=== PATIENT | male | born 1960 | race Caucasian/White ===

== ENCOUNTER 2021-12-25 01:46 | Inpatient (IN) ==
[2021-12-25] MEDS ORDERED: fentaNYL 100 mcg/2 ml 50 MCG/ML VIAL IV ONE (01:48)
[2021-12-25] MEDS ORDERED: Droperidol 5 MG/2 ML 2 ML VIAL IV ONE (01:48)
[2021-12-25] MEDS ORDERED: Lactated Ringers 1000 ml BAG 1,000 ML IV ONE (01:48)
[2021-12-25] MEDS ORDERED: HYDROmorphone 0.5 MG/0.5 ML SYRINGE IV SLOW PU PRN (02:44)
[2021-12-25] MEDS ORDERED: Ondansetron 4 mg VIAL 2 MG/ML 2 ml VIAL IV PRN (02:44)
[2021-12-25] MEDS ORDERED: Piperacillin/Tazobac ADVAN 3.375 GM in NS 0.9% 100 ml BAG 100 ML IV ONE (02:50)
[2021-12-25] MEDS ORDERED: Ciprofloxacin 400mg IVPREMIX 400 MG/200 ML BAG IVPB SCH (03:00)
[2021-12-25] MEDS ORDERED: metroNIDAZOLE IV 500 MG/100ML 100 ML IVPB SCH (03:00)
[2021-12-25] MEDS ORDERED: Zosyn per Pharmacy NOTE FOLLOW UP SCH (03:00)
[2021-12-25] MEDS: Lactated Ringers 1000 ml BAG 1,000 ML IV SCH (03:28)
[2021-12-25] MEDS: metroNIDAZOLE IV 500 MG/100ML 500 MG/100 ML BAG IVPB SCH ×3 (05:53→19:25)
[2021-12-25] MEDS ORDERED: Acetaminophen IV 1 GM/100ML 100 ML IV ONE ×2 (07:58→08:07)
[2021-12-25 08:27] LABS: Hematocrit 42 % (42-52); Hemoglobin 14.2 g/dL (14.0-18.0); Mean Corpuscular HGB Conc 34 g/dL (31-36); Mean Corpuscular Hemoglobin 31 pg (27-31); Mean Corpuscular Volume 91 fL (80-94); Red Blood Count 4.65 10^6 /uL (4.18-5.48); Red Cell Distribution Width 14 % (10-15)
[2021-12-25 09:04] LABS: Anion Gap 10 mmol/L (2-11); Blood Urea Nitrogen 22 mg/dL (6-24); C Reactive Protein 237.45 mg/L (<8.01); CO2 Carbon Dioxide 22 mmol/L (22-32); Calcium 8.8 mg/dL (8.6-10.3); Chloride 100 mmol/L (101-111); Glucose 125 mg/dL (70-100); Potassium 4.1 mmol/L (3.5-5.0); Sodium 132 mmol/L (135-145); eGFR CKD-EPI 84.7 (>60)
[2021-12-25 09:10] LABS: CRP High Sensitivity > 80.00 mg/L (<2.00)
[2021-12-25 09:37] LABS: Platelet Count Platelets clumped. 10^3/uL (150-450); White Blood Count 1.6 10^3/uL (3.5-10.8)
[2021-12-25 09:38] LABS: ABS Lymphocytes 0.3 10^3/ul (1.0-4.8); ABS Monocytes 0.2 10^3/ul (0-0.8); ABS Neutrophils 1.2 10^3/ul (1.5-7.7); Eosinophil % 0.2 %; Lymphocyte % 16.3 %; Nucleated Red Blood Cells % 0.2
[2021-12-25] MEDS ORDERED: SODIUM CHLORIDE 0.9% IV ONE (10:15)
[2021-12-25] MEDS: Ciprofloxacin 400mg IVPREMIX 400 MG/200 ML BAG IVPB SCH (15:06)
[2021-12-26] MEDS: Lactated Ringers 1000 ml BAG 1,000 ML IV SCH ×2 (00:08→11:59)
[2021-12-26] MEDS: Ciprofloxacin 400mg IVPREMIX 400 MG/200 ML BAG IVPB SCH ×2 (03:15→16:21)
[2021-12-26] MEDS: metroNIDAZOLE IV 500 MG/100ML 500 MG/100 ML BAG IVPB SCH ×3 (04:39→18:46)
[2021-12-26 07:04] LABS: ABS Lymphocytes 0.4 10^3/ul (1.0-4.8); ABS Monocytes 0.3 10^3/ul (0-0.8); Hematocrit 38 % (42-52); Hemoglobin 12.8 g/dL (14.0-18.0); Mean Corpuscular HGB Conc 34 g/dL (31-36); Mean Corpuscular Hemoglobin 31 pg (27-31); Mean Corpuscular Volume 92 fL (80-94); Mean Platelet Volume 8.3 fL (7.4-10.4); Platelet Count 153 10^3/uL (150-450); Red Blood Count 4.14 10^6 /uL (4.18-5.48); Red Cell Distribution Width 14 % (10-15); White Blood Count 7.7 10^3/uL (3.5-10.8)
[2021-12-26 07:18] LABS: Calcium 8.7 mg/dL (8.6-10.3); Potassium 4.2 mmol/L (3.5-5.0); eGFR CKD-EPI 80.8 (>60)
[2021-12-26] MEDS: Enoxaparin 40 MG/0.4 ML SYR SUBCUT SCH (09:38)
[2021-12-26] MEDS ORDERED: Lactated Ringers 1000 ml BAG 1,000 ML IV SCH (15:15)
[2021-12-27] MEDS: Ciprofloxacin 400mg IVPREMIX 400 MG/200 ML BAG IVPB SCH ×2 (02:06→15:15)
[2021-12-27] MEDS: metroNIDAZOLE IV 500 MG/100ML 500 MG/100 ML BAG IVPB SCH ×3 (03:49→20:18)
[2021-12-27 06:24] LABS: Hematocrit 39 % (42-52); Hemoglobin 13.1 g/dL (14.0-18.0); Mean Corpuscular HGB Conc 34 g/dL (31-36); Mean Corpuscular Hemoglobin 31 pg (27-31); Mean Corpuscular Volume 91 fL (80-94); Red Blood Count 4.25 10^6 /uL (4.18-5.48); Red Cell Distribution Width 13 % (10-15); White Blood Count 8.7 10^3/uL (3.5-10.8)
[2021-12-27 06:25] LABS: ABS Lymphocytes 0.4 10^3/ul (1.0-4.8); ABS Monocytes 0.5 10^3/ul (0-0.8); ABS Neutrophils 7.7 10^3/ul (1.5-7.7); Lymphocyte % 4.7 %; Nucleated Red Blood Cells % 0.1
[2021-12-27 06:35] LABS: Potassium 3.9 mmol/L (3.5-5.0); eGFR CKD-EPI 99.4 (>60)
[2021-12-27 08:16] LABS: Mean Platelet Volume 8.7 fL (7.4-10.4)
[2021-12-27 08:26] LABS: Platelet Count Platelets clumped. 10^3/uL (150-450)
[2021-12-27] MEDS: Enoxaparin 40 MG/0.4 ML SYR SUBCUT SCH (08:45)
[2021-12-28] MEDS: Ciprofloxacin 400mg IVPREMIX 400 MG/200 ML BAG IVPB SCH (03:03)
[2021-12-28] MEDS: metroNIDAZOLE IV 500 MG/100ML 500 MG/100 ML BAG IVPB SCH (04:38)
[2021-12-28 06:55] LABS: ABS Eosinophils 0.1 10^3/ul (0-0.6); ABS Lymphocytes 0.8 10^3/ul (1.0-4.8); ABS Monocytes 0.9 10^3/ul (0-0.8); ABS Neutrophils 8.7 10^3/ul (1.5-7.7); Eosinophil % 0.7 %; Hematocrit 38 % (42-52); Hemoglobin 12.8 g/dL (14.0-18.0); Lymphocyte % 7.5 %; Mean Corpuscular HGB Conc 34 g/dL (31-36); Mean Corpuscular Hemoglobin 31 pg (27-31); Mean Corpuscular Volume 91 fL (80-94); Red Blood Count 4.11 10^6 /uL (4.18-5.48); Red Cell Distribution Width 14 % (10-15); White Blood Count 10.5 10^3/uL (3.5-10.8)
[2021-12-28 07:09] LABS: Calcium 8.4 mg/dL (8.6-10.3); Potassium 3.7 mmol/L (3.5-5.0); eGFR CKD-EPI 103.1 (>60)
[2021-12-28 07:16] LABS: Platelet Count Platelets clumped. 10^3/uL (150-450)
[2021-12-28] MEDS: Enoxaparin 40 MG/0.4 ML SYR SUBCUT SCH (09:32)
[2021-12-28] MEDS ORDERED: metroNIDAZOLE IV 500 MG/100ML 500 MG/100 ML BAG IVPB SCH (12:00)
[2021-12-28 12:12] VITALS: BP 151/90
== END 2021-12-28 13:25 | disposition home or self-care (01) | DRG 244 ==
LOC: ED 01:46 → EDHOLD 02:57 → SSU 09:54
PROVIDERS: ADMIT Surgery; ATTEND Surgery

== ENCOUNTER 2022-01-15 13:31 | Inpatient (IN) ==
[2022-01-15 15:17] LABS: ABS Basophils 0.1 10^3/ul (0-0.2); ABS Eosinophils 0.1 10^3/ul (0-0.6); ABS Lymphocytes 1.2 10^3/ul (1.0-4.8); ABS Monocytes 0.9 10^3/ul (0-0.8); ABS Neutrophils 7.3 10^3/ul (1.5-7.7); Eosinophil % 1.4 %; Hematocrit 38 % (42-52); Hemoglobin 12.3 g/dL (14.0-18.0); Lymphocyte % 12.8 %; Mean Corpuscular HGB Conc 33 g/dL (31-36); Mean Corpuscular Hemoglobin 29 pg (27-31); Mean Corpuscular Volume 88 fL (80-94); Mean Platelet Volume 7.7 fL (7.4-10.4); Platelet Count 372 10^3/uL (150-450); Red Blood Count 4.24 10^6 /uL (4.18-5.48); Red Cell Distribution Width 13 % (10-15); White Blood Count 9.6 10^3/uL (3.5-10.8)
[2022-01-15 15:21] LABS: Urine Appearance Clear; Urine Bilirubin Negative (Negative); Urine Blood Negative (Negative); Urine Color Yellow; Urine Glucose Negative (Negative); Urine Ketones Negative (Negative); Urine Nitrite Negative (Negative); Urine Protein Negative (Negative); Urine Specific Gravity 1.012 (1.002-1.030); Urine Urobilinogen Negative (Negative)
[2022-01-15 15:52] LABS: Albumin 3.4 g/dL (3.2-5.2); Albumin/Globulin Ratio 0.9 (1-3); C Reactive Protein 156.82 mg/L (<8.01); Calcium 9.6 mg/dL (8.6-10.3); Globulin 3.9 g/dL (2-4); Potassium 4.4 mmol/L (3.5-5.0); Total Bilirubin 0.8 mg/dL (0.2-1.0); Total Protein 7.3 g/dL (6.4-8.9); eGFR CKD-EPI 105.7 (>60)
[2022-01-15] MEDS ORDERED: Morphine 4 MG/ML VIAL (1 ml) IV ONE (17:45)
[2022-01-15] MEDS ORDERED: Lactated Ringers 1000 ml BAG 1,000 ML IV ONE (17:45)
[2022-01-15] MEDS ORDERED: Piperacillin/Tazobac ADVAN 3.375 GM in NS 0.9% 100 ml BAG 100 ML IV ONE (19:40)
[2022-01-15] MEDS ORDERED: Ondansetron 4 mg VIAL 2 MG/ML 2 ml VIAL IV PRN (20:00)
[2022-01-15] MEDS ORDERED: Albuterol HFA INHALER 8 gm MDI INH PRN (20:04)
[2022-01-16] MEDS ORDERED: ZOSYN 3.375 GM Q8H per EXTENDED INFUSION IV ONE (01:00)
[2022-01-16] MEDS: NS 0.9% 1000 ml BAG 1,000 ML IV SCH ×2 (02:33→17:15)
[2022-01-16 05:45] LABS: ABS Eosinophils 0.2 10^3/ul (0-0.6); ABS Lymphocytes 1.2 10^3/ul (1.0-4.8); ABS Monocytes 0.8 10^3/ul (0-0.8); ABS Neutrophils 7.8 10^3/ul (1.5-7.7); Eosinophil % 1.6 %; Hematocrit 36 % (42-52); Hemoglobin 11.9 g/dL (14.0-18.0); Lymphocyte % 11.8 %; Mean Corpuscular HGB Conc 33 g/dL (31-36); Mean Corpuscular Hemoglobin 29 pg (27-31); Mean Corpuscular Volume 89 fL (80-94); Mean Platelet Volume 7.2 fL (7.4-10.4); Platelet Count 342 10^3/uL (150-450); Red Blood Count 4.08 10^6 /uL (4.18-5.48); Red Cell Distribution Width 13 % (10-15)
[2022-01-16 06:18] LABS: Calcium 9.2 mg/dL (8.6-10.3); Potassium 4.6 mmol/L (3.5-5.0); eGFR CKD-EPI 99.4 (>60)
[2022-01-16] MEDS: Piperacillin/Tazobactam VIAL 3.375 GM in NS 0.9% 100 ml BAG 100 ML IVPB SCH ×2 (10:38→18:43)
[2022-01-16 13:55] LABS: INR 1.47 (0.86-1.15)
[2022-01-16] MEDS ORDERED: fentaNYL 100 mcg/2 ml 50 MCG/ML VIAL ONE ×2 (14:54→15:33)
[2022-01-17] MEDS: NS 0.9% 1000 ml BAG 1,000 ML IV SCH ×2 (03:36→16:36)
[2022-01-17] MEDS: Piperacillin/Tazobactam VIAL 3.375 GM in NS 0.9% 100 ml BAG 100 ML IVPB SCH ×3 (04:45→20:12)
[2022-01-17 06:21] LABS: ABS Eosinophils 0.2 10^3/ul (0-0.6); ABS Lymphocytes 0.9 10^3/ul (1.0-4.8); ABS Monocytes 0.8 10^3/ul (0-0.8); ABS Neutrophils 6.4 10^3/ul (1.5-7.7); Hematocrit 33 % (42-52); Hemoglobin 11.2 g/dL (14.0-18.0); Lymphocyte % 11.2 %; Mean Corpuscular HGB Conc 34 g/dL (31-36); Mean Corpuscular Hemoglobin 30 pg (27-31); Mean Corpuscular Volume 89 fL (80-94); Mean Platelet Volume 6.5 fL (7.4-10.4); Platelet Count 449 10^3/uL (150-450); Red Blood Count 3.69 10^6 /uL (4.18-5.48); Red Cell Distribution Width 14 % (10-15); White Blood Count 8.4 10^3/uL (3.5-10.8)
[2022-01-17 06:50] LABS: Calcium 8.7 mg/dL (8.6-10.3); Potassium 4.1 mmol/L (3.5-5.0); eGFR CKD-EPI 101.9 (>60)
[2022-01-18] MEDS: Piperacillin/Tazobactam VIAL 3.375 GM in NS 0.9% 100 ml BAG 100 ML IVPB SCH (03:11)
[2022-01-18 07:45] VITALS: BP 128/79
== END 2022-01-18 10:36 | disposition home or self-care (01) | DRG 244 ==
LOC: EDHOLD 13:31 → ED 13:31 → SSU 01-16 00:58
PROVIDERS: ADMIT Surgery; ATTEND Surgery